=== PATIENT | male | born 1975 | race Hispanic/Latino ===

== ENCOUNTER 2018-06-04 17:29 | Observation (INO) | payer BC ==
[2018-06-04 17:38] VITALS: BMI 32.6
--- NOTE | 2018-06-04 18:06 | ED PDOC ---
Arrival/HPI - General Chief Complaint: Chest Pain Time Seen by Provider: 06/04/18 17:50 - History of Present Illness Narrative History of Present Illness (Text): 06/04/18 18:04 42 yo male, hx of htn, presents with left sided chest tightness, states had sh oulder pain, he attributed to "sleeping on it". developed chest tightness. no h/o of mi, smoking. never stress test. Past Medical History - Infectious Disease Hx of Infectious Diseases: None - Cardiac Hx Hypertension: Yes - Psychiatric Hx Substance Use: No - Surgical History Hx Orthopedic Surgery: Yes (R hip y) - Anesthesia Hx Anesthesia: Yes Hx Anesthesia Reactions: No Hx Malignant Hyperthermia: No Family/Social History Family/Social History: Unknown Family HX Smoking Status: Never Smoked Hx Alcohol Use: No Hx Substance Use: No Allergies/Home Meds Allergies/Adverse Reactions: Allergies No Known Allergies Allergy (Unverified 06/04/18 17:56) Review of Systems - Review of Systems Constitutional: Normal Eyes: Normal ENT: Normal Respiratory: Normal Cardiovascular: Chest Pain Gastrointestinal: Normal Genitourinary Male: Normal Musculoskeletal: Normal Skin: Normal Neurological: Normal Endocrine: Normal Hemo/Lymphatic: Normal Psychiatric: Normal Physical Exam Vital Signs Temp Pulse Resp BP Pulse Ox 06/04/18 17:37 98.0 F 120 H 18 145/96 H 98 Temperature: Afebrile Blood Pressure: Normal Pulse: Tachycardic Respiratory Rate: Normal Appearance: Positive for: Well-Appearing, Non-Toxic, Comfortable Pain Distress: None Mental Status: Positive for: Alert and Oriented X 3 - Systems Exam Head: Present: Atraumatic, Normocephalic Pupils: Present: PERRL Extroacular Muscles: Present: EOMI Conjunctiva: Present: Normal Mouth: Present: Moist Mucous Membranes Neck: Present: Normal Range of Motion Respiratory/Chest: Present: Clear to Auscultation, Good Air Exchange. No: Respiratory Distress, Accessory Muscle Use Cardiovascular: Present: Regular Rate and Rhythm, Normal S1, S2. No: Murmurs Abdomen: No: Tenderness, Distention, Peritoneal Signs Back: Present: Normal Inspection Upper Extremity: Present: Normal Inspection. No: Cyanosis, Edema Lower Extremity: Present: Normal Inspection. No: Edema Neurological: Present: GCS=15, CN II-XII Intact, Speech Normal Skin: Present: Warm, Dry, Normal Color. No: Rashes Psychiatric: Present: Alert, Oriented x 3, Normal Insight, Normal Concentration Medical Decision Making ED Course and Treatment: 06/04/18 18:10 cp ro acs. ekg nsr [address] tave changes normal intervals. 06/04/18 19:16 cp ro acs - labs cxr labs dimer neg. accpeted by dr sidhu covering dr talbot. - RAD Interpretation Radiology Orders: 06/04/18 17:56 CHEST PORTABLE [RAD] Stat - Medication Orders Current Medication Orders: Discontinued Medications Aspirin (Aspirin) 325 mg PO STAT STA Stop: 06/04/18 17:57 Disposition/Present on Arrival - Present on Arrival Any Indicators Present on Arrival: No History of DVT/PE: No History of Uncontrolled Diabetes: No Urinary Catheter: No History of Decub. Ulcer: No History Surgical Site Infection Following: None - Disposition Have Diagnosis and Disposition been Completed?: Yes Diagnosis: Chest pain Disposition: HOSPITALIZED Disposition Time: 17:30 Condition: STABLE Discharge Instructions (ExitCare): Chest Pain (ED) Forms: [employer] (Maltese)
[2018-06-04 18:12] LABS: BASO # 0.05 K/mm3 (0.0-2.0); BASO % 0.5 % (0.0-3.0); EOS # 0.1 (0.0-0.7); EOS % 0.6 % (1.5-5.0); GRAN # 7.36 (1.4-6.5); GRAN % 71.7 % (50.0-68.0); HEMOGLOBIN 14.9 g/dL (14.0-18.0); LYMPH # 2.2 (1.2-3.4); LYMPH % 21.2 % (22.0-35.0); MEAN CELL VOLUME 84.4 fl (80.0-105.0); MEAN CORPUSCULAR HEMOGLOBIN 29.4 pg (25.0-35.0); MEAN CORPUSCULAR HGB CONC 34.8 g/dl (31.0-37.0); MEAN PLATELET VOLUME 10.9 fl (7.0-11.0); MONO # 0.6 (0.1-0.6); RBC 5.07 10^6/uL (3.5-6.1); RED CELL DISTRIBUTION WIDTH 12.7 % (11.5-14.5); WHITE BLOOD COUNT 10.3 10^3/uL (4.5-11.0)
[2018-06-04 18:23] LABS: ALB/GLOB RATIO 1.5 (1.1-1.8); ALBUMIN 4.8 g/dL (3.0-4.8); ALT/SGPT 42 U/L (7-56); AST/SGOT 30 U/L (17-59); BLOOD UREA NITROGEN 9 mg/dL (7-21); CALCIUM 9.4 mg/dL (8.4-10.5); GFR NON-AFRICAN AMERICAN > 60
[2018-06-04 18:34] LABS: B-TYPE NATRIURETIC PEPTIDE 15.7 pg/mL (0-450); TROPONIN I < 0.01 ng/mL
[2018-06-04 18:37] LABS: INR 1.09; PARTIAL THROMBOPLASTIN TIME 30.7 Seconds (25.1-36.5); PROTHROMBIN TIME 12.5 SECONDS (9.4-12.5)
[2018-06-04 18:40] LABS: D DIMER < 200 ng/mlDDU (0-243)
[2018-06-04 20:29] LABS: URINE BILIRUBIN NEGATIVE (NEGATIVE); URINE BLOOD SMALL (NEGATIVE); URINE GLUCOSE (UA) NEGATIVE (NEGATIVE); URINE LEUKOCYTE ESTERASE NEGATIVE Leu/uL (NEGATIVE); URINE PROTEIN NEGATIVE mg/dL (<30 mg/dL)
[2018-06-04 20:30] LABS: URINE APPEARANCE CLEAR (CLEAR); URINE COLOR YELLOW (YELLOW)
[2018-06-04 20:41] LABS: URINE BACTERIA NEG /hpf; URINE WBC NEGATIVE /hpf (0-6)
[2018-06-05 06:07] VITALS: O2SAT 96
[2018-06-05 08:22] LABS: HDL CHOLESTEROL 26 mg/dL (29-60)
[2018-06-05 08:33] LABS: LDL CHOLESTEROL 127 mg/dL (0-129)
--- NOTE | 2018-06-05 08:51 | RAD ---
Date of service: 06/04/2018 HISTORY: cp COMPARISON: No prior. FINDINGS: LUNGS: No active pulmonary disease. PLEURA: No significant pleural effusion identified, no pneumothorax apparent. CARDIOVASCULAR: No aortic atherosclerotic calcification present. Normal cardiac size. No pulmonary vascular congestion. OSSEOUS STRUCTURES: No significant abnormalities. VISUALIZED UPPER ABDOMEN: Normal. OTHER FINDINGS: None. IMPRESSION: No active disease.
--- NOTE | 2018-06-05 09:34 | CARD ---
APPROVED REPORT Date of service: 06/04/2018 EKG Measurement Heart [id number] <Conclusion> Normal sinus rhythm PRWP Inferior infarct, age undetermined No change
--- NOTE | 2018-06-05 09:35 | CARD ---
APPROVED REPORT Date of service: 06/04/2018 EKG Measurement Heart [id number] CA P59 [id number] <Conclusion> Sinus tachycardia Inferior infarct, age undetermined PRWP
[2018-06-05 13:38] VITALS: BP 122/75; PULSE 97; RESP 17; TEMP 98.1
--- NOTE | 2018-06-05 15:28 | CARD ---
APPROVED REPORT Date of service: 06/05/2018 Protocol: JYOTI Test Type: Sestamibi Stress Test Attending Physician: Dr. Julio Cesar Hamilton Referring Physician: Dr. Oleg Ta Test Indications: Chest Pain Height:5 ft 8 in Weight:215lbs Medications: valsartan, amlodipine Medical History: 42 year old male with h/o HTN and right hip surgery Target HR: 177 bpm Resting ECG: normal Resting Heart Rate: 92 bpm Resting Blood Pressure: 136/88mmHg Submaximum (85%): 150 bpm POST EXERCISE Reason for Termination: Fatigue Target HR: No Max HR: 162 bpm 92% of Maximum Predicted HR: 177 bpm Exercise duration: 09:00 min:sec, 3 Stage Exercise capacity: 10.1METs Max Blood Pressure: 158/104mmHg Blood Pressure response to exercise: normal resting BP - appropriate response Heart Rate response to exercise: appropriate Chest Pain: No, none Angina index: 0 Arrhythmia: No, none ST Change: No, none Deviation: 0 mm TEST SUMMARY [id number]/.0. [id number]/88.0. EXERCISESTAGE 103:[id number]/90.0. EXERCISESTAGE 203:[id number]/90.0. EXERCISESTAGE 303:[id number]/104.0. [id number]/80.6. INTERPRETATION Stress EKG Conclusion: Negative stress test for Chest pain and for ischemia, Nuclear scan to follow. Signed by Julio Cesar Hamilton Electronically Approved: 06/05/2018 10:34:16 EXAM: Myocardial Perfusion REST/STRESS Stress Test Type: Exercise Treadmill Imaging Protocol The imaging protocol used to acquire images was Rest Tc-99m/stress Tc-99m 1 day Rest Spect myocardial perfusion imaging was performed in supine position 50 minutes following the injection of 10.6 mCi of Tc-99 Myoview. At peak stress, the patient was injected intravenously with 30.9mCi of Tc-99 tetrofosmin after an exercise time of 9 minutes and 00 seconds. Gated Stress Spect was performed 70 minutes after intravenous Tc-99 Myoview injection. The images were gated to evaluate regional wall motion and calculate ventricular ejection fraction.Images were reconstructed using backfilter projection method in short horizontal and verticle long axis. Spect slices were generated. LV Perfusion The quality of the study is good. The left ventricle is within normal limitsd in size. The right ventricle is unremarkable. The lung uptake is normal. The distribution of tracer reveals mildly decreased perfusion involving distal anterior / apical wall on the stress study. The remainder of the LV myocardium is unremarkable. The rest myocardial perfusion study shows no significant change. Wall Motion Wall motion study shows good contractility of the left ventricle. LVEF = 62%. Conclusion 1. Essentially normal SPECT myocardial perfusion study. 2. Fixed, distal anterior / apical defect is most likely due to prominent pectoal soft tissue/ male breast attenuation. 3. Normal gated wall motion of the left ventricle.
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
--- NOTE | 2018-06-05 20:39 | HP ---
DATE OF EXAM: 06/05/2018 HISTORY OF PRESENT ILLNESS: The patient is 42 years old, states he was out with his children on Tuesday night, he felt some pain in the left neck radiating to the left shoulder and then in the left arm. He thought he slept wrong, he did not think much of it, but he is continued to have some chest discomfort and that continued again till Tuesday morning, so he decided to come to emergency room to get checked. PAST MEDICAL HISTORY: Only significant for hypertension. FAMILY HISTORY: No significant family history of coronary artery disease. ALLERGIES: HE IS NOT ALLERGIC TO ANY MEDICATION. HOME MEDICATION: He is on amlodipine, valsartan does not know the dose. SOCIAL HISTORY: Used to smoke, but quit 6 years ago. He smoked for 15 years, socially drinks. REVIEW OF SYSTEMS: Significant for some left shoulder and chest discomfort, but feels fine now. PHYSICAL EXAMINATION: GENERAL: He is awake, alert, oriented, and communicative. VITAL SIGNS: He is afebrile. Pulse 87, respiration 18 and blood pressure 112/53. LUNGS: Bilateral fair airflow. No rhonchi or crackle. HEART: S1 and S2, audible. ABDOMEN: Soft and nontender. No rebound. No guarding. NEUROLOGICAL: The patient is awake, alert, oriented, communicative and ambulatory. LABORATORY DATA: WBC 10.3, hemoglobin 14, hematocrit 42 and platelet 345. Chemistry; sodium 141, potassium 3.7, chloride 106, CO2 of 25, BUN 9, creatinine 0.7, blood sugar of 112 and HDL 26. Urinalysis, small blood and 2 to 3 rbc's. ASSESSMENT: 1. Chest pain, seems to be noncardiac. The patient has stress test done, scan is pending. However, exercise stress test portion is negative. 2. History of hypertension. Troponins are negative. PLAN: The patient will be discharge home today. He will follow with his stress test and we discharge if it is okay with the Cardiology. Oleg Ta MD
--- NOTE | 2018-06-06 10:55 | CARD ---
APPROVED REPORT Date of service: 06/05/2018 EXAM: Two-dimensional and M-mode echocardiogram with Doppler and color Doppler. INDICATION LV Function:SystolicDiastolic 2D DIMENSIONS Left Atrium (2D)3.4 (1.6-4.0cm)IVSd1.0 (0.7-1.1cm) LVDd4.6 (3.9-5.9cm)PWd1.0 (0.7-1.1cm) LVDs3.4 (2.5-4.0cm)FS (%) 26.3 % LVEF (%)51.6 (>50%) M-Mode DIMENSIONS Aortic Root3.20 (2.2-3.7cm)Aortic Cusp Exc.1.60 (1.5-2.0cm) Aortic Valve AoV Peak Aaiuoisz312.0cm/Seb Peak GR.9mmHg Mitral Valve MV E Uoxluewn08.1cm/sMV A Kmlzuhjh95.8cm/sE/A ratio0.7 TDI E/Lateral E'0.0E/Medial E'0.0 Tricuspid Valve TR Peak [id number]/sRAP [id number] Peak Gr.15mmHg [id number] LEFT VENTRICLE The left ventricle is normal size. There is normal left ventricular wall thickness. The left ventricular function is normal.EF-55% There is normal LV segmental wall motion. Transmitral Doppler flow pattern is Grade III-reversible restrictive diastolic dysfunction. No left ventricle thrombus noted on this study. There is no ventricular septal defect visualized. There is no left ventricular aneurysm. There is no mass noted in the left ventricle. RIGHT VENTRICLE The right ventricle is normal size. There is normal right ventricular wall thickness. The right ventricular systolic function is normal. ATRIA The left atrium size is normal. The right atrium size is normal. The interatrial septum is intact with no evidence for an atrial septal defect. AORTIC VALVE The aortic valve is thickened but opens well. No aortic regurgitation is present. There is no aortic valvular stenosis. There is no aortic valvular vegetation. MITRAL VALVE The mitral valve is thickened but opens well. Mitral regurgitation is trace to mild. There is no mitral valve stenosis. There is no evidence of mitral valve prolapse. TRICUSPID VALVE The tricuspid valve is normal in structure. There is trace tricuspid regurgitation. There is no tricuspid valve stenosis. There is no tricuspid valve prolapse or vegetation. PULMONIC VALVE The pulmonary valve is normal in structure. There is trace pulmonic valvular regurgitation. There is no pulmonic valvular stenosis. GREAT VESSELS The aortic root is normal in size. The ascending aorta is normal in size. The pulmonary artery is normal. The IVC is normal in size and collapses >50% with inspiration. PERICARDIAL EFFUSION There is no pleural effusion. There is no pericardial effusion. <Conclusion> Normal chamber Size. EF-55% Mitral regurgitation is trace to mild. There is trace tricuspid regurgitation. The IVC is normal in size and collapses >50% with inspiration. There is no pericardial effusion.
== END 2018-06-05 13:48 | disposition home or self-care (01) ==
LOC: ED 17:29 → ERH 18:46 → 2RSO 20:50
PROVIDERS: ADMIT Internal Medicine; ATTEND Internal Medicine
DX: R07.89 Other chest pain (principal); I10 Essential (primary) hypertension; E66.9 Obesity, unspecified; Z87.891 Personal history of nicotine dependence; Z68.32 Body mass index [BMI] 32.0-32.9, adult
CPT/HCPCS: 36415; 71045; 78452; 80053; 80061; 81001; 82550; 83615; 83735; 83880; 84443; 84484; 85025; 85378; 85610; 85730; 93005; 93017; 93306; 99285; A9502; G0378